=== PATIENT | female | born 1970 | race Caucasian/White ===

== ENCOUNTER 2019-05-20 08:13 | Day surgery (SDC) | payer OTHER ==
[~2019-05-20] VITALS: Ht 170.2 cm; Wt 181.4 kg
[~2019-05-20 08:13] MED LIST: ALBU3IS INH; ALBU90OI INH; ALBU90OI6 INH; AMLO5; ARIP10 PO; ARTHRITIS MED; ATOR80 PO; AZIT250 PO; BENZ100A PO; BISA10S PR; CARI350 PO; CEFD300 PO; CEPH500 PO; CLON2 PO; COMBIVENT RESPIM4 GM INH; CYCL10 PO; Chest Congesti400 MG; DELTASONE20 MG; DELTASONE20 MG PO; DIAZ5; DORN1IH; DULERA 200 MCG/13 GM INH; Duoneb 2.5-0.5 M3 ML INH; ESCI20; FAMO20; FAMO40 PO; FURO40 PO; FURO80 PO; GABA300 PO; HYDACE10B PO; HYDPAM50 PO; LACTOBACILLUS ACIDOP PO; LISI20 PO; LORA1 PO; LORA10 PO; MECL12.5 PO; MELO7.5 PO; MELOXICAM MC; METCAR750 PO; NYST100P TOP; Norco 5-325 Ta1 EACH PO; POTA10T PO; POTA8 PO; PRAZ1 PO; PRED10 PO; PROM25 PO; Percocet 5-3251 EACH PO; Prednisone20 MG PO; Prednisone50 MG PO; Prozac20 MG PO; QVAR7.3 G1 IH; SUCR1 PO; THEO300ERC; TRAZ100 PO; Ultram50 MG PO; Ventolin Soln3 ML INH; ZIPR20 PO; ZIPR80 PO; Zanaflex4 M1 PO; Zithromax250 MG PO; Zofran Odt4 MG PO; [UNRECOGNIZED DRUG - OTHER] PO
--- NOTE | 2019-05-20 10:39 | NUR ---
INTO [facility] ADMISSION STARTED. History, Chart, Medications and Allergies reviewed before start of procedure.Patient confirms NPO status and agrees with scheduled surgery. Patient States Post-Procedure ride home has been arranged. EXPIRATORY WHEEZE RIGHT SIDE CLEAR LEFT SIDE
--- NOTE | 2019-05-20 11:59 | NUR ---
05/20/19 1159 Judy Garcia PROCEDURE ROOM ENDO #1. MONITOR INTACT WITH CONTINUOUS PULSE OXIMETRY AND INTERMITTENT BP.
--- NOTE | 2019-05-20 12:55 | NUR ---
DRESSING WHILE SITTING. PATIENT STATES SHE DOES NOT AMBULATE. WILL TRANSPORT VIS W/C TO CAR. DAUGHTER TO DRIVE HOME.
--- NOTE | 2019-05-20 12:56 | NUR ---
PRESCRIPTION CALLED TO [facility] VIA VOICEMAIL MESSAGE. Discharge instructions reviewed with patient. Patient verbalizes understanding. Copy given to patient to take home. Tolerating PO fluids. VSS.
== END 2019-05-20 13:04 | disposition home or self-care (01) ==
LOC: ORSCMMR 08:13 → ORD 11:15 → ORSCMMR 11:45
PROVIDERS: Student in an Organized Health Care Education/Training Program
PROC: 0DB68ZX Excision of Stomach, Via Natural or Artificial Opening Endoscopic, Diagnostic (ICD-10-PCS; principal; 2019-05-20 11:45)
DX: Z01.818 Encounter for other preprocedural examination (principal); J44.9 Chronic obstructive pulmonary disease, unspecified; I10 Essential (primary) hypertension; F41.8 Other specified anxiety disorders; E66.01 Morbid (severe) obesity due to excess calories; Z68.44 Body mass index [BMI] 60.0-69.9, adult; Z79.899 Other long term (current) drug therapy
CPT/HCPCS: 88305; 88341; 88342; J2704; J7120

== ENCOUNTER 2021-03-26 16:37 | Emergency (ER) | payer OTHER ==
[~2021-03-26] VITALS: Ht 170.2 cm; Wt 181.4 kg
== END 2021-03-26 20:24 | disposition home or self-care (01) ==
LOC: ER 16:37
DX: S61.032A Puncture wound without foreign body of left thumb without damage to nail, initial encounter (principal); S61.031A Puncture wound without foreign body of right thumb without damage to nail, initial encounter; S61.233A Puncture wound without foreign body of left middle finger without damage to nail, initial encounter; I10 Essential (primary) hypertension; J45.909 Unspecified asthma, uncomplicated; Z88.7 Allergy status to serum and vaccine; Z79.899 Other long term (current) drug therapy; X58.XXXA Exposure to other specified factors, initial encounter; Y93.89 Activity, other specified
CPT/HCPCS: 73140; 99283-25

== ENCOUNTER 2024-07-13 00:59 | Emergency (ER) | payer OTHER ==
[~2024-07-13] VITALS: Ht 170.2 cm; Wt 181.4 kg
[~2024-07-13 00:59] MED LIST changes: +Hydroxyzine HCl50 MG; +Lasix80 MG PO; +OMEP20ER PO
[2024-07-13 01:12] VITALS: BP 108/85
[2024-07-13] MEDS ORDERED: Ipratropium/Albuterol SulF 2.5-0.5MG/3 ML Amp INH PRN (01:20)
[2024-07-13 01:25] LABS: BASOPHILS ABSOLUTE AUTO 0.04 K/mm3 (0.00-0.23); BASOPHILS PERCENT AUTO 1 % (0-2); EOSINOPHILS ABSOLUTE AUTO 0.15 K/mm3 (0.00-0.68); EOSINOPHILS PERCENT AUTO 3 % (0-6); Hematocrit 35.9 % (33.0-51.0); Hemoglobin 11.7 g/dL (11.5-16.0); IMMATURE GRAN ABSOLUTE AUTO 0.01 K/mm3 (0.00-0.10); IMMATURE GRAN PERCENT AUTO 0 % (0-1); LYMPHOCYTES ABSOLUTE AUTO 1.86 K/mm3 (0.84-5.20); LYMPHOCYTES PERCENT AUTO 42 % (21-46); MONOCYTES ABSOLUTE AUTO 0.38 K/mm3 (0.16-1.47); MONOCYTES PERCENT AUTO 9 % (4-13); Mean Corpuscular HGB 31.5 pg (26.0-34.0); Mean Corpuscular HGB Conc 32.6 g/dL (31.5-36.5); Mean Corpuscular Volume 97 fL (80-100); Mean Platelet Volume 9.9 fL (9.1-12.4); NEUTROPHILS PERCENT AUTO 45 % (41-73); Platelet Count 231 K/mm3 (150-400); RDW Coefficient Variation 13.8 % (11.7-14.2); RDW Standard Deviation 49.7 fL (35.1-46.3); Red Blood Cell Count 3.71 M/mm3 (3.80-5.20); White Blood Cell Count 4.44 K/mm3 (4.00-11.30)
[2024-07-13 01:45] LABS: Albumin, Blood 2.4 g/dL (3.4-5.0); Albumin/Globulin Ratio 0.6 (0.8-1.8); Bilirubin, Total 0.1 mg/dL (0.1-1.0); Bun/Creatinine Ratio 12.6 (12.0-20.0); Calcium, Blood 7.8 mg/dL (8.5-10.1); Creatinine, Blood 1.03 mg/dL (0.40-1.00); Globulin, Blood 3.7 g/dL (2.2-4.0); Total Protein, Blood 6.1 g/dL (6.4-8.2)
[2024-07-13] MEDS ORDERED: Potassium Chloride 20 MEQ TabCR PO ONE (02:10)
[2024-07-13] MEDS ORDERED: Ipratropium/Albuterol SulF 2.5-0.5MG/3 ML Amp INH ONE (02:10)
[2024-07-13] MEDS ORDERED: NICODERM CQ1 EA11 TOP (02:13)
[2024-07-13] MEDS ORDERED: AZIT250 PO (02:17)
[2024-07-13] MEDS ORDERED: Azithromycin 250 MG Tab PO ONE (02:20)
== END 2024-07-13 02:50 | disposition home or self-care (01) ==
LOC: ER 00:59
PROVIDERS: Emergency Medicine
DX: J44.1 Chronic obstructive pulmonary disease with (acute) exacerbation (principal); J18.9 Pneumonia, unspecified organism; G47.33 Obstructive sleep apnea (adult) (pediatric); I10 Essential (primary) hypertension; F17.210 Nicotine dependence, cigarettes, uncomplicated; Z68.44 Body mass index [BMI] 60.0-69.9, adult; Z87.891 Personal history of nicotine dependence; Z79.899 Other long term (current) drug therapy; Z88.7 Allergy status to serum and vaccine
CPT/HCPCS: 71046; 80053; 84484; 85025; 93005; 93010; 94640; 94664; 99285-25; A9270